=== PATIENT | male | born 1970 | race Caucasian/White ===

== ENCOUNTER 2023-02-22 12:37 | Emergency (ER) | payer MEDICAID, OTHER ==
[~2023-02-22] VITALS: Ht 172.7 cm; Wt 109.1 kg
[2023-02-22 13:02] VITALS: BP 137/86; PULSE 98; RESP 18; TEMP 97.7; O2SAT 99
[2023-02-22] MEDS ORDERED: BENZ200C52 MT (14:07)
== END 2023-02-22 14:35 | disposition home or self-care (01) ==
LOC: ER 12:48
DX: R05.9 Cough, unspecified (principal); E11.9 Type 2 diabetes mellitus without complications; J45.909 Unspecified asthma, uncomplicated; Z98.890 Other specified postprocedural states
CPT/HCPCS: 71045; 99283